=== PATIENT | female | born 1985 | race Caucasian/White ===

== ENCOUNTER 2018-12-15 05:10 | Inpatient (IN) | payer OTHER, SELFPAY ==
[2018-12-15] VITALS (14 sets, daily range): BP systolic 96–120; BP diastolic 50–78; PULSE 78–98; RESP 12–18; TEMP 36.1–36.8; O2SAT 97–99; BMI 33.3
[2018-12-15] MEDS: Lactated Ringers 1,000 ML 999 ML IV (05:25)
[2018-12-15 05:44] LABS: Absolute Lymphocyte Count 2.23 X10^3/uL (0.83-4.51); Absolute Neutrophil Count 5.4 X10^3/uL (2.0-7.7); Basophil# 0.04 X10^3/uL; Basophil% 0.5 % (0-1); Eosinophil# 0.22 X10^3/uL; Eosinophils% 2.6 % (0-5); Hematocrit 33.6 % (37-47); Hemoglobin 11.2 g/dL (12.0-15.0); Lymphocyte # 2.23 X10^3/ul (4.0); Lymphocyte % 25.9 % (19-41); Mean Corp Hgb Conc 33.3 g/dL (32-36); Mean Corpuscular Hgb 29.6 pg (27.0-32.0); Mean Corpuscular Volume 88.9 fL (81-99); Monocyte# 0.64 X10^3/uL; Monocyte% 7.4 % (0-10); NRBC Flagged by Analyzer 0 % (0-5); Neutrophil # 5.44 X10^3/uL (2.7-7.7); Neutrophil % 63.3 % (47-70); Platelet Count 284 K/mm3 (150-450); RBC Distribution Width CV 14.5 % (11.6-14.6); RBC Distribution Width SD 46.4 fl (35.1-43.9); Red Blood Count 3.78 M/mm3 (4.2-5.4); White Blood Count 8.6 K/mm3 (4.4-11.0)
[2018-12-15] MEDS: Lactated Ringers 1,000 ML 150 ML IV (06:28)
[2018-12-15] MEDS: Sodium Citrate/Citric Acid 30 ML UDC PO (07:20)
[2018-12-15] MEDS: Cefazolin 2 GM in 0.9% Normal Saline 100 ML IV (07:25)
[2018-12-15] MEDS: Oxytocin 30 units/NS 500 ml 30 UNITS/500 ML IV.SOLN 167 UNITS IV (07:45)
--- NOTE | 2018-12-15 08:20 | OP.PCM_ITS ---
Delivery Classification: Scheduled Final ANUP: 12/29/18 Final ANUP Source: US <20 weeks Gestational age: 38 Weeks and 0 Days Indications: 33-year-old 38 weeks gestation AMA, antiphospholipid syndrome, poor obstetrical history with 4-second trimester losses. [facility] recommends delivery at 38 weeks. This is a planned elective repeat section Indications for : Repeat Elective Description of Procedure: Surgeon: Dr. Sofi Tyson Automatic Casting Machine Operator: Dr. Elyssa Lou Procedure performed: Repeat section Anesthesia: Spinal Preoperative diagnosis: Term gestation 38 weeks gestation for an elective repeat section, AMA, antiphospholipid syndrome, poor obstetrical history Postoperative Diagnosis: same- live female infant Findings: Live female infant born without complication. clear amniotic fluid. Delayed cord clamping performed. Normal tubes and ovaries bilaterally. EBL: 700cc Implantable devices: None Operative note: After informed consent was obtained the patient was taken to the operating room she was given spinal anesthesia. He was placed in the supine position. She was then prepped and draped in normal sterile fashion. Once spinal anesthesia was found to be adequate skin incision was made with a scalpel in a Pfannenstiel fashion. It was carried down to the underlying layer of the fascia. Fascia was then incised midline with scapel and extended laterally using curved connors. 2 straight Sidney's were placed in the superior aspect of the fascial edge and the rectus muscles were dissected off sharply. Attention was then turned to the inferior aspect where again the fascial edge was grasped with 2 straight Jeanine clamps tented up and the rectus muscle dissected off sharply. At this time the rectus muscles were grasped in the midline using 2 Allis clamps and scalpel was used to separate the rectus muscles. Using blunt force the peritoneum was then entered. At this time the vesicouterine peritoneum was identified. Uterine incision was made in a low transverse fashion with the scalpel and then entered bluntly. Gentle opposing traction was placed to extend the uterine incision. The membranes were ruptured amniotic fluid clear. Infant's head was then brought to the uterine incision was delivered atraumatically followed by the rest 's body. At this time delayed cord clamping was performed mouth nose were suctioned. Immediate skin the skin was performed. The placenta was then removed with gentle traction. The uterus was removed from the intra-abdominal cavity is wrapped in a moist lap. He was cleared of all clots and debris using a moist lap. Ring clamps were placed on the uterine angles. #1 Vicryl suture was used in a running locked fashion for the first layer. Followed by second imbricating layer with #1 Vicryl. At this time then the uterus was placed back into abdominal cavity uterine incision was evaluated and noted to be of good hemostasis. Tubes and ovaries were evaluated they were normal. The peritoneum was grasped with Kellys. Peritoneum and muscle were reapproximated using #2 Vicryl suture in a running fashion. Muscle appreciated. Fi [id number] suture for hemostasis. Bovie used as well. Dianna was placed over the muscular layer. The fascia was then reapproximated using #1 PDS in a running fashion. Subcutaneous layer was evaluated and Bovie was used for any small oozing that was noted per #2-0 plain gut suture was then used to reapproximate the subcutaneous layer 4-0 Vicryl on a Remington needle was used to reapproximate the skin in a subcutaneous fashion. Dianna Placed in the subcu layer dry sterile dressing was applied. Instrument lap needle count were correct ?2. Anticipated normal postoperative course for this patient. Amniotic Membrane Rupture Type: Artificial Amniotic Fluid Description: Clear Placenta Disposition: [facility] Drain: Jefferson to straight drain Fluids Replaced: 1000 Cord Entanglement: None Cord Vessel Description: 3 Vessels Esitmated Blood Loss (ml): 700 Infant Gender: Female (1 minute): 9 (5 minute): 9 Delayed cord clamping: Yes Pre-op Antibiotic Given: Ancef 2 grams IV x1 Pt instructed on risks of surgery: Bleeding, Anesthesia Risks, Infection, Injury to surrounding structure(s) including bowel and bladder Complications: None - Admit VTE Documentation VTE Present on Admission: Yes VTE Mechan Device Prophylaxis: SCD's VTE Pharm Prophylaxis ordered?: Yes
--- NOTE | 2018-12-15 08:24 | HP.PCM_ITS ---
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 Patient is scheduled for section on 12/15/2018 at 38 weeks' gestation as recommended by maternal medicine. Patient has a poor obstetrical history with 4 second trimester losses. Patient with antiphospholipid syndrome, AMA. Patient denies any concerns today. ? PAST?MEDICAL?HISTORY PAST MEDICAL HISTORY Diagnosis Date ? ACNE NEC 01/01/2005 ? Acquired hypothyroidism 10/15/2017 ? Anemia ? ? WITH PAST PREGNANCIES ? Asthma ? ? Chronic back pain 04/04/2013 ? 04/04/2013Patient has a history of a herniated disc at L4-L5, and S1-S2. TKRN ? Herniated disc ? ? L4/L5, S1/S2 ? History of asthma 04/04/2013 ? 04/04/2013Patient has a history of exercise-induced asthma. She uses an albuterol inhaler when necessary. TKRN ? History of 04/04/2013 ? 04/04/2013Pt had a previous C section for failed induction- never in labor. She is considering a repeat C section versus a . tkrn June 19, 2013 Risks/benefits/alternatives discussed with patient regarding trial of labor and potential for uterine rupture. Risks include but are not limited to maternal hemorrhage, risk of injury to adjacent organs including potential hysterectomy. risks discussed as well, including potential for permanent neurologic injury or . Overall uterine rupture risk is less than 1% after one section. Is a trial of labor contraindicated for this patient? No If no, calculate rate of success using pre-labor factors: http://[email or web address]/vagbirth.html Predicted chance of vaginal after : 75% Patient's plan for delivery mode: plans MILIND, still hasn't definitively made decision. Considering TOLAC if goes much beyond 40 weeks then would plan c/s. MD Elyssa Alvarado MD ? History of kidney stones 04/04/2013 ? 2002, none since 2003 ? HNP (herniated nucleus pulposus), lumbar 07/11/2013 ? Paroxysmal tachycardia (HCC) ? ? WITH PAC'S ? Severe depression 08/03/2013 ? Single stillborn delivery outcome 2012 ? PAST?SURGICAL?HISTORY PAST SURGICAL HISTORY Procedure Laterality Date ? DELIVERY ONLY ? ? ? , low transverse ? DELIVERY ONLY ? ? ? , low transverse ? PAST SURGICAL HISTORY OF ? ? ? WISDOM TEETH ? PRK ? 2010 ? FAMILY?HISTORY FAMILY HISTORY Problem Relation Age of Onset ? Arthritis Mother ? ? Heart Mother ? ? mvp, A FIB ? Asthma Mother ? ? other (FIBROMYALGIA) Mother ? ? Hypertension Father ? ? Lipids Father ? ? Thyroid Father ? ? Lipids Maternal Grandmother ? ? other (Fuch's) Maternal Grandmother ? ? Heart Maternal Grandfather ? ? Glaucoma Maternal Grandfather ? ? Alzheimer's Disease Maternal Grandfather ? ? Diabetes Maternal Grandfather ? ? Thyroid Paternal Grandfather ? ? SOCIAL?HISTORY Social History Socioeconomic History Marital status: Spouse name: YANIRA Number of children: 2 Years of education: Not on file Highest education level: Not on file Occupational History Occupation: physician Employer: [employer] Comment: PEDIATRICS Social Needs Financial resource strain: Not on file Food insecurity: Worry: Not on file Inability: Not on file Transportation needs: Medical: Not on file Non-medical: Not on file Tobacco Use Smoking status: Never Smoker Smokeless tobacco: Never Used Substance and Sexual Activity Alcohol use: No Drug use: No Sexual activity: Yes Partners: Male Lifestyle Physical activity: Days per week: Not on file Minutes per session: Not on file Stress: Not on file Relationships Social connections: Talks on phone: Not on file Gets together: Not on file Attends episcopalian service: Not on file Active member of club or organization: Not on file Attends meetings of clubs or organizations: Not on file Relationship status: Not on file Intimate partner violence: Fear of current or ex partner: Not on file Emotionally abused: Not on file Physically abused: Not on file Forced sexual activity: Not on file Other Topics Concerns: Not on file Social History Narrative Not on file ? CURRENT?MEDICATIONS ? Current Outpatient Medications: buPROPion XL (WELLBUTRIN XL) 150 mg 24 hr tablet Take 1 tablet by mouth once daily. sertraline (ZOLOFT) 100 mg tablet Take 1 tablet by mouth once daily. enoxaparin (LOVENOX) 40 mg/0.4 mL syrg Inject 0.4 mL subcutaneously every 24 hours. levothyroxine (SYNTHROID) 137 mcg tablet Take 1 tablet by mouth once daily. metFORMIN ER (GLUCOPHAGE XR) 500 mg 24 hr tablet Take 1 tablet by mouth once d aily. hydroxychloroquine (PLAQUENIL) 200 mg tablet Take 2 tablets by mouth once daily. Take 2 each day except for Wednesday clindamycin (CLEOCIN-T) 1 % gel Apply to face and trunk in the morning and evening doxylamine (UNISOM, DOXYLAMINE,) 25 mg tab Take by mouth. Taking half tablet daily aspirin, enteric coated (ASPIRIN, ENTERIC COATED) 81 mg EC tablet Take 81 mg by mouth once daily. OTC PRODUCT Methylfolate - 1 mg - takes by mouth 4 mg daily montelukast (SINGULAIR) 10 mg tablet Take 1 tablet by mouth daily at bedtime. [facility] Nasal Ointment Use 1 application in each nostril twice daily as needed. C CF nasal ointment Cetirizine (ZYRTEC) 10 mg cap Take by mouth once daily. Qdaohuuh-Xs-Sbk-Fe-FA ( VITAMIN) tab Take 1 tablet by mouth. progesterone micronized (PROMETRIUM) 200 mg capsule 1 capsule daily at bedtime. vaginally (Patient not taking: Reported on 12/12/2018 ) ? No current facility-administered medications for this visit. Allergies As of Date: 12/12/2018 Allergen Noted Reaction BACITRACIN 08/23/2008 Rash DUST MITES 01/12/2017 Other: See Comments LATEX 08/23/2008 Rash MOLD 01/12/2017 Other: See Comments NAPROXEN 01/01/2005 GI Upset NEOSPORIN [[id number]*08/23/2008 Rash NICKEL 08/23/2008 Rash RAGWEED 10/22/2016 Other: See Comments TREES 10/22/2016 Other: See Comments ? Fully Assessed 12/12/2018 ? ? REVIEW OF SYSTEMS Abdomen: No pain. Good movement. ? Expanded ROS: GENERAL: Negative for fever Allergies and current medication updated:Yes ? EXAM: BP 116/66 Wt 195 lb (88.5kg) LMP 03/24/2018 ? GENERAL: pleasant, female in no apparent distress HEENT: Normocephalic NECK: full range of motion DERMATOLOGY: Normal, without lesions, non-icteric and non-hirsute CARDIAC: Regular rate and rhythm CHEST: Normal inspiratory effort ABDOMEN: soft, gravid, non tender NEURO: alert and oriented x3,exam grossly non-focal EXTREMITIES: normal ? ASSESSMENT AND PLAN: Encounter Diagnosis ? ? ICD-10-CM ? 1. Previous section Z98.891 URINE OB DIP B/O 2. 37 weeks gestation of Z3A.37 URINE OB DIP B/O ? 3. Pt has been counseled on risks/benefits and alternatives of surgery including but not limited to anesthesia, bleeding, infection, injury to pelvic structures including bowel, bladder, ureters and vessels. Pt wishes to proceed with surgery at this time. 4, recommendation by maternal- medicine for delivery at 38 weeks gestation due to prior poor obstetrical outcomes, antiphospholipid syndrome, AMA 5. Consent signed. Declines tubal Patient will stop her Lovenox 24 hours prior to her section. ? Sofi Tyson MD ?
[2018-12-15] MEDS: Lactated Ringers 1,000 ML 100 ML IV (08:49)
[2018-12-15] MEDS: oxyCODONE 5 MG Tablet PO ×3 (11:36→23:59)
[2018-12-15] MEDS: Ketorolac 30 MG/ML Syringe IV ×2 (13:58→19:31)
[2018-12-15] MEDS: 0.9% Saline Lock 10 ML Syringe IV ×2 (13:59→19:31)
[2018-12-15] MEDS: Montelukast 10 MG Tablet PO (22:01)
[2018-12-15] MEDS: Sertraline 100 MG Tablet PO (22:01)
[2018-12-15] MEDS: Loratadine 10 MG Tablet PO (22:01)
[2018-12-16] VITALS: BP 112/74; RESP 16; TEMP 36.3; O2SAT 96
[2018-12-16] MEDS: Ketorolac 30 MG/ML Syringe IV ×2 (02:58→08:02)
[2018-12-16] MEDS: 0.9% Saline Lock 10 ML Syringe IV ×2 (02:59→08:03)
[2018-12-16 03:10] VITALS: BP 120/73; PULSE 114; RESP 18; TEMP 36.1
[2018-12-16] MEDS: Acetaminophen 500 MG Tablet 1000 MG PO ×2 (04:47→12:45)
[2018-12-16] MEDS: oxyCODONE 5 MG Tablet PO ×4 (04:48→17:24)
[2018-12-16 05:01] LABS: Hematocrit 31.9 % (37-47); Mean Corp Hgb Conc 31.3 g/dL (32-36); Mean Corpuscular Hgb 28.9 pg (27.0-32.0); Mean Corpuscular Volume 92.2 fL (81-99); Mean Platelet Vol. 8.5 fl (6.2-12.0); Platelet Count 246 K/mm3 (150-450); RBC Distribution Width CV 14.6 % (11.6-14.6); RBC Distribution Width SD 49.3 fl (35.1-43.9); Red Blood Count 3.46 M/mm3 (4.2-5.4); White Blood Count 12.4 K/mm3 (4.4-11.0)
[2018-12-16] MEDS: buPROPion (XL) 150 MG TABLET.XL PO (06:01)
[2018-12-16] MEDS: Enoxaparin 40 MG/0.4 ML Syringe SC (06:01)
[2018-12-16] MEDS: Levothyroxine 137 MCG Tablet PO (06:01)
--- NOTE | 2018-12-16 07:51 | PCM.PN.OB ---
Subjective: Pain better controlled now with tylenol & oxycodone. - Physical Exam General: Alert, Oriented x3 Abdomen: Soft, Non Tender, Non-Distended - ff mid & below umb Extremities: No Calf Tenderness Neurological: Cranial nerves II-XII grossly intact Psych/Mental Status: Normal Affect Vital Signs Temp Pulse Resp BP Pulse Ox 96.9 F L 114 H 18 120/73 96 12/16/18 03:10 12/16/18 03:10 12/16/18 03:10 12/16/18 03:10 12/16/18 00:00 Oxygen Delivery Method Room Air Weight: 194 lb 6 oz Body Mass Index (BMI) 33.3 Intake and Output for Last 24 Hours 12/14/18 12/15/18 12/16/18 23:59 23:59 23:59 Intake Total 3655 / 3655 Output Total 2300 / 2300 600 / 600 Balance 1355 / 1355 -600 / -600 Laboratory Tests Past 24 Hrs 12/16/18 04:50 WBC 12.4 H RBC 3.46 L Hgb 10.0 L Hct 31.9 L MCV 92.2 MCH 28.9 MCHC 31.3 L RDW Std Deviation 49.3 H RDW Coeff of Moreno 14.6 Plt Count 246 MPV 8.5 Medical Necessity - Tobacco Use Smoking Status: Never smoker Assessment/Plan POD#1 Heme - HDS ID - AF, no signs infection GI - ADAT - adequate UOP Routine care
[2018-12-16 08:00] VITALS: BP 98/62; PULSE 86; RESP 16; TEMP 36.4; O2SAT 97
[2018-12-16] MEDS: Senna/Docusate Sodium 1 Tablet PO (09:06)
--- NOTE | 2018-12-16 11:40 | NURSING ---
dr nunn in to discuss plan of care and poss need of transfer. mother sobbing and stated, weve been through so much recently [facility] and checking on insurance d/t having an opening for pt to stay. elizabeth in to give emotional support and to discuss with pediatrian ways to keep babys bs up. will repeat bs again in one hour. glucogel given per nursery rn.
--- NOTE | 2018-12-16 12:34 | DCINST_ITS ---
Discharge Diet: No Restrictions Discharge Activity: May not drive while taking narcotic pain medications., May Shower May resume sexual activity in: 6 weeks Weight Bearing Status: Weight bearing as tolerated Call your doctor if your incision/area has: Continuous Slow Oozing, Sudden Increased Bleeding, Increased Pain/ Swelling, Increased Redness, Foul Smelling Discharge, Swelling at the incision site Suture Line Care: Avoid Pulling/Pushing Cleanse incision/area with: Soap & Water Additional Instructions: If you experience any of the following, contact your healthcare provider. * Bleeding that soaks a pad every hour for 2 hours * Fever 100.4 or higher * Unrelieved incision or abdominal pain * Swelling, redness, discharge or bleeding from your incision or epi siotomy site * Your incision begins to separate * Problems urinating (including inability to urinate or burning while urinating). * Visual changes * Severe headache * Flu-like symptoms * Pain or redness in one of both of your breasts * Pain, warmth, tenderness or swelling in your legs, especially the calf area * Frequent nausea and vomiting * Symptoms of depression or anxiety If you experience any of the following, call 911 or go to the nearest Emergency Room. * Chest pain * Problems breathing * Seizure activity * Partial or complete paralysis of a body part, slurred speech, weakness or drooping of the face, or a sudden inability to walk or hold your balance Allergies/Adverse Reactions: Allergies latex Allergy (Verified 11/25/14 14:57) Rash bacitracin Adverse Reaction (Verified 11/25/14 14:57) Rash naproxen Adverse Reaction (Verified 11/25/14 14:57) Nausea neomycin [Neomycin] Adverse Reaction (Verified 11/25/14 14:57) Rash nickel [Nickel] Adverse Reaction (Verified 11/25/14 14:57) Rash Medications to take at Discharge Cetirizine HCl [Zyrtec] 10 mg PO DAILY 05/09/13 Vits [Prenatabs FA ] 1 tablet PO DAILY 05/09/13 Albuterol Inhaler [Ventolin Hfa] 1 - 2 puff INHALATION Q4H PRN PRN 04/06/17 Sertraline HCl [Zoloft] 100 mg PO DAILY 04/06/17 Bupropion HCl [Wellbutrin Xl] 150 mg PO DAILY 12/15/18 Doxylamine Succinate [Unisom] 25 mg PO DAILY PRN 12/15/18 Enoxaparin Sodium [Lovenox] 40 mg SQ DAILY 12/15/18 Levothyroxine [Synthroid] 137 mcg PO DAILY 12/15/18 Montelukast [Singulair] 10 mg PO DAILY 12/15/18 Oxycodone [Oxyir] 5 mg PO Q6H PRN PRN 7 Days #28 tab 12/16/18 The following prescriptions were given: Oxycodone [Oxyir] 5 mg PO Q6H PRN PRN 7 Days #28 tab PRN Reason: abdominal pain Prescription Printed Follow-Up: Call to make an appointment with your doctor for an incision check in 1-2 weeks. You will also need a 6 week post- follow up appointment. Test results from this visit will be discussed in further detail at your follow- up appointment, if applicable. Primary Care Physician: Luigi Ritchie MD [Primary Care Provider] -
--- NOTE | 2018-12-16 12:40 | PCM.PN.BLA ---
Progress Note Patient's daughter is being transferred to [place]. She requests discharge. Rx oxycodone given.
[2018-12-16] MEDS: Ibuprofen 600 MG Tablet PO (12:45)
[2018-12-16 14:00] VITALS: BP 116/72; PULSE 106; RESP 16; TEMP 36.3; O2SAT 97
--- NOTE | 2018-12-16 16:07 | CASEMGMT ---
RN asked SW to check in on MOB, as baby is getting transferred to [place] for low blood sugars. SW met w/MOB in room, offered support. MOB explains that she has had losses here and was just hoping everything would go well this time. She wanted to feed the baby and is not able to at present due to the low blood sugars. Also, [facility] could not [facility] to [facility] here as it does not take her insurance, so baby getting transferred to [place]. She states this is fine as she and her both have family in that area. MOB expressed frustration w/situation but feels okay with everything now, and is just waiting for transport to get here for baby--which should be here shortly. 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 She is holding baby at present, baby getting IV, MOB is calm and appropriate for situation. SW let MOB know that SW remains available should she need anything prior to their departure. Support given, otherwise not further needs anticipated at this time. VIN Ann
--- NOTE | 2018-12-21 16:29 | NURSING ---
Follow up phone call done. Mother and baby doing well baby is home was transported due to blood sugar issues.
== END 2018-12-16 17:35 | disposition home or self-care (01) | DRG 787 ==
PROVIDERS: Admitting Provider Obstetrics & Gynecology; Family Provider Family Medicine; PCP Family Medicine; Referring Provider Obstetrics & Gynecology; Visit Provider Obstetrics & Gynecology
PROC: 10D00Z1 Extraction of Products of Conception, Low, Open Approach (ICD-10-PCS; CPT 59514; principal; 2018-12-15 07:15)
DX: O34.211 Maternal care for low transverse scar from previous cesarean delivery (principal); O99.12 Other diseases of the blood and blood-forming organs and certain disorders involving the immune mechanism complicating childbirth; D68.61 Antiphospholipid syndrome; O99.284 Endocrine, nutritional and metabolic diseases complicating childbirth; E03.9 Hypothyroidism, unspecified; J45.909 Unspecified asthma, uncomplicated; Z79.01 Long term (current) use of anticoagulants; Z79.899 Other long term (current) drug therapy; Z86.2 Personal history of diseases of the blood and blood-forming organs and certain disorders involving the immune mechanism; Z87.442 Personal history of urinary calculi; Z3A.38 38 weeks gestation of pregnancy; Z37.0 Single live birth
CPT/HCPCS: 85025; 85027; 86850; 86900; 99218; J7120; A4216; G0378; J2405